=== PATIENT | female | born 1945 | race Caucasian/White ===

== ENCOUNTER 2021-11-28 12:39 | Emergency (ER) | payer MEDICARE, OTHER ==
[~2021-11-28] VITALS: Ht 182.9 cm; Wt 195.0 kg
[2021-11-28 14:54] VITALS: BP 162/43
[2021-11-28 15:13] LABS: BASO % 0 % (0-3); EOS % 0 % (0-3); HEMATOCRIT 47.5 % (36.0-47.0); HEMOGLOBIN 15.9 g/dL (12.0-15.5); LYMPH # 1.1 x10^3/uL (1.0-4.8); LYMPH % 22 % (24-48); MEAN CORPUSCULAR HEMOGLOBIN 30 pg (25-35); MEAN CORPUSCULAR HGB CONC 33 g/dL (31-37); MEAN CORPUSCULAR VOLUME 91 fL (79-100); MONO # 0.4 x10^3/uL (0.0-1.1); MONO % 9 % (0-9); NEUT # 3.2 x10^3/uL (1.8-7.7); NEUT % 68 % (31-73); PLATELET COUNT 108 x10^3/uL (140-400); RED BLOOD COUNT 5.23 x10^6/uL (3.50-5.40); RED CELL DISTRIBUTION WIDTH 13.4 % (11.5-14.5); WHITE BLOOD COUNT 4.7 x10^3/uL (4.0-11.0)
[2021-11-28 15:23] LABS: CALCIUM 8.4 mg/dL (8.5-10.1); CREATININE 1.4 mg/dL (0.6-1.0); GFR 36.7; POTASSIUM 4.1 mmol/L (3.5-5.1)
[2021-11-28] MEDS: ONDANSETRON PF 4 MG/2 ML VIAL. IVP ONE (15:24)
[2021-11-28] MEDS: IV NORMAL SALINE 1000ML BAG 1,000 ML IV ONE (15:25)
--- NOTE | 2021-11-28 15:26 | PHYS DOC ---
Past Medical History Additional Past Medical Histor: melanoma Past Surgical History: Other Additional Past Surgical Histo: cataract removal both eyes, melanoma, facial lesion Smoking Status: Never Smoker Alcohol Use: None General Adult EDM: Chief Complaint: NAUSEA/VOMITING/DIARRHEA HPI: HPI: Patient is a 76 year old female who presents the ED today to be evaluated for multiple complaints. Daughter states patient had cough congestion and a fever on Sunday. On Sunday she developed nausea, vomiting and generalized weakness. Patient denies any abdominal pain, chest pain, or shortness of breath. She states she received a Pfizer Covid vaccine last year one dose and developed an allergic reaction which she describes as pain to the upper extremities, headache. She states she will not get any more Covid vaccines. She states she received a flu vaccine last week Most history was obtained from the does not Review of Systems: Review of Systems: Constitutional: Reports fever, weakness Eyes: Denies change in visual acuity. [] HENT: Reports nasal congestion Respiratory: Reports cough, denies shortness of breath Cardiovascular: Denies chest pain or edema. [] GI: Reports nausea and vomiting. Denies abdominal pain, bloody stools or diarrhea. [] : Denies dysuria. [] Musculoskeletal: Denies back pain or joint pain. [] Integument: Denies rash. [] Neurologic: Denies headache, focal weakness or sensory changes. [] Psychiatric: Denies depression or anxiety. [] Heart Score: C/O Chest Pain: N/A Risk Factors: Risk Factors: DM, Current or recent (<one month) smoker, HTN, HLP, family history of CAD, obesity. Risk Scores: Score 0 - 3: 2.5% MACE over next 6 weeks - Discharge Home Score 4 - 6: 20.3% MACE over next 6 weeks - Admit for Clinical Observation Score 7 - 10: 72.7% MACE over next 6 weeks - Early Invasive Strategies Current Medications: Current Medications Medications (Trade) Dose Ordered Sig/Marco Start Time Stop Time Status Last Admin Dose Admin Ondansetron HCl (Zofran) 4 mg 1X ONCE 11/28/21 15:00 11/28/21 15:04 DC Sodium Chloride 1,000 ml @ 1,000 mls/hr 1X ONCE 11/28/21 15:00 11/28/21 15:59 Allergies: Allergies: Allergies Coded Allergies Type Severity Reaction Last Updated Verified Penicillins Allergy Intermediate 11/28/21 Yes Sulfa (Sulfonamide Antibiotics) Allergy Intermediate 11/28/21 Yes Physical Exam: PE: Constitutional: Well developed, well nourished, no acute distress, non-toxic appearance. [] HENT: Normocephalic, atraumatic, bilateral external ears normal, oropharynx moist, no oral exudates, nose normal. [] Eyes: PERRLA, EOMI, conjunctiva normal, no discharge. [] Neck: Normal range of motion, no tenderness, supple, no stridor. [] Cardiovascular:Heart rate regular rhythm, no murmur [] Lungs & Thorax: Bilateral breath sounds clear to auscultation [] Abdomen: Bowel sounds normal, soft, no tenderness, no masses, no pulsatile masses. [] Skin: Warm, dry, no erythema, no rash. [] Back: No tenderness, no CVA tenderness. [] Extremities: No tenderness, no cyanosis, no clubbing, ROM intact, no edema. [] Neurologic: Alert and oriented X 3, normal motor function, normal sensory function, no focal deficits noted. [] Psychologic: Affect normal, judgement normal, mood normal. [] Current Patient Data: Labs: Laboratory Tests Test 11/28/21 15:00 White Blood Count 4.7 x10^3/uL (4.0-11.0) Red Blood Count 5.23 x10^6/uL (3.50-5.40) Hemoglobin 15.9 g/dL (12.0-15.5) H Hematocrit 47.5 % (36.0-47.0) H Mean Corpuscular Volume 91 fL (79-100) Mean Corpuscular Hemoglobin 30 pg (25-35) Mean Corpuscular Hemoglobin Concent 33 g/dL (31-37) Red Cell Distribution Width 13.4 % (11.5-14.5) Platelet Count 108 x10^3/uL (140-400) L Neutrophils (%) (Auto) 68 % (31-73) Lymphocytes (%) (Auto) 22 % (24-48) L Monocytes (%) (Auto) 9 % (0-9) Eosinophils (%) (Auto) 0 % (0-3) Basophils (%) (Auto) 0 % (0-3) Neutrophils # (Auto) 3.2 x10^3/uL (1.8-7.7) Lymphocytes # (Auto) 1.1 x10^3/uL (1.0-4.8) Monocytes # (Auto) 0.4 x10^3/uL (0.0-1.1) Eosinophils # (Auto) 0.0 x10^3/uL (0.0-0.7) Basophils # (Auto) 0.0 x10^3/uL (0.0-0.2) Laboratory Tests 11/28/21 15:00 Vital Signs: Vital Signs Date Time Temp Pulse Resp B/P (MAP) Pulse Ox O2 Delivery O2 Flow Rate FiO2 11/28/21 14:54 98 18 162/43 (82) 99 11/28/21 13:04 97.8 Room Air 97.8 EKG: EK interpreted by Dr. Carballo sinus rhythm heart rate 96 no STEMI [] Radiology/Procedures: Radiology/Procedures: []PROCEDURE: PORTABLE CHEST 1V XR CHEST 1V History: Reason: fever / Spl. Instructions: / History: Comparison: None. Findings: Mild ill-defined mid and bibasilar opacities. No pleural effusion. No p neumothorax. Normal heart size. Impression: 1. Mild ill-defined mid and bibasilar opacities, may represent pneumonia including viral pneumonia. Electronically signed by: Omid Disla DO (11/28/2021 3:45 PM) [facility] DICTATED and SIGNED BY: OMID DISLA DO DATE: 11/28/21 [id number] 0 Course & Med Decision Making: Course & Med Decision Making Pertinent Labs and Imaging studies reviewed. (See chart for details) This is a 76-year-old female patient presenting to the ED today complaining of cough, nasal congestion, fevers that began on Sunday, also complaining of nausea, vomiting and weakness since Sunday last week. CBC with a normal WBC, CMP with nothing limits acute. Positive for COVID-19, chest x-ray noted for possible viral pneumonia. Spoke to patient and daughter benefits of admission versus being discharged. Patient prefers to go home. She will stay with the daughter for now. Discharged on doxycycline, Decadron and Zofran. Follow-up with PCP in 1 week Franklyn Disclaimer: Franklyn Disclaimer: This electronic medical record was generated, in whole or in part, using a voice recognition dictation system. Departure Departure Impression: Primary Impression: COVID-19 virus RNA test result positive at limit of detection Additional Impressions: Bilateral pneumonia Qualified Codes: J18.9 - Pneumonia, unspecified organism Fever Qualified Codes: R50.9 - Fever, unspecified URI (upper respiratory infection) Qualified Codes: J06.9 - Acute upper respiratory infection, unspecified Nausea & vomiting Qualified Codes: R11.2 - Nausea with vomiting, unspecified Disposition: 01 HOME / SELF CARE / HOMELESS Condition: STABLE Referrals: KARLA KINSEY MD (PCP) follow up in the next 7 days Patient Instructions: Fever, Adult, Nausea and Vomiting, Pneumonia, Adult Additional Instructions: You are positive for COVID-19. We will put you on antibiotics, ensure you complete them. We also put you on steroids. Take them until completed. Take Zofran as needed for nausea or vomiting, you can also take the prescribed promethazine for nausea or vomiting. Push fluids, maintain good and hygiene, rest, come back to the ED at any point symptoms worsen. Follow-up with your doc tor next week. Use the incentive spirometry provided at least 10 times every hour. Scripts Dexamethasone (Decadron) 4 Mg Tablet 1 TAB PO BID for 4 Days, #8 TAB 0 Refills Prov: TONI SILVA REGISTERED APPRAISER 11/28/21 Promethazine Hcl (PROMETHAZINE HCL) 25 Mg Tablet 1 TAB PO PRN Q6HRS, #20 TAB Prov: TONI SILVA REGISTERED APPRAISER 11/28/21 Ondansetron (ONDANSETRON ODT) 4 Mg Tab.rapdis 1 TAB PO PRN Q6-8HRS, #16 TAB Prov: TONI SILVA REGISTERED APPRAISER 11/28/21 Doxycycline Hyclate (DOXYCYCLINE HYCLATE) 100 Mg Tablet 1 TAB PO BID, #14 TAB Prov: TONI SILVA REGISTERED APPRAISER 11/28/21 TONI SILVA REGISTERED APPRAISER Nov 28, 2021 15:26
[2021-11-28 15:37] LABS: ALBUMIN 3.4 g/dL (3.4-5.0); ALBUMIN/GLOBULIN RATIO 0.8 (1.0-1.7); MAGNESIUM 2.1 mg/dL (1.8-2.4); TOTAL BILIRUBIN 0.8 mg/dL (0.2-1.0); TOTAL PROTEIN 7.7 g/dL (6.4-8.2)
[2021-11-28] MEDS: MORPHINE SULFATE 2 MG/ML INJ. IVP ONE (15:45)
--- NOTE | 2021-11-28 15:47 | RAD ---
XR CHEST 1V History: Reason: fever / Spl. Instructions: / History: Comparison: None. Findings: Mild ill-defined mid and bibasilar opacities. No pleural effusion. No pneumothorax. Normal heart size . Impression: 1. Mild ill-defined mid and bibasilar opacities, may represent pneumonia including viral pneumonia. Electronically signed by: Omid Disla DO (11/28/2021 3:45 PM) [facility] [place]
[2021-11-28] MEDS: ACETAMINOPHEN 500 MG TABLET PO ONE (15:51)
[2021-11-28 16:11] LABS: INFLUENZA A PATIENT NEGATIVE (NEGATIVE); INFLUENZA B PATIENT NEGATIVE (NEGATIVE)
[2021-11-28] MEDS: cefTRIAXone IV Push 1 GM VIAL. IVP ONE (17:13)
[2021-11-28] MEDS: DEXAMETHASONE SOD PHOS 20 MG/5 ML VIAL. IV ONE (17:13)
[2021-11-28] MEDS ORDERED: ONDA4TAB12 PO (17:20)
[2021-11-28] MEDS ORDERED: PROM25TA10 PO (17:20)
[2021-11-28] MEDS ORDERED: DOXY100T PO (17:20)
[2021-11-28] MEDS ORDERED: DEXA4TAB63 PO (17:48)
[2021-11-28 17:58] LABS: BILIRUBIN,URINE NEGATIVE (NEG); COLOR,URINE YELLOW; NITRITE,URINE NEGATIVE (NEG); PROTEIN,URINE NEGATIVE (NEG-TRACE); UROBILINOGEN,URINE 0.2 mg/dL (0.2 mg/dL)
[2021-11-28 18:08] LABS: BACTERIA,URINE FEW /HPF (0-FEW); CLARITY,URINE HAZY; RBC,URINE 0 /HPF (0-2)
[2021-11-28 18:09] LABS: WBC,URINE OCC /HPF (0-4)
[2021-11-28 18:22] LABS: BARBITURATES NEG (NEG); BENZODIAZEPINES NEG (NEG); CANNABINOIDS NEG (NEG); COCAINE NEG (NEG); METHADONE NEG (NEG); OPIATES NEG (NEG); PHENCYCLIDINE NEG (NEG)
[2021-11-28 18:28] LABS: AMPHETAMINE/METHAMPHETAMINE NEG (NEG)
--- NOTE | 2021-11-28 18:52 | EKG ---
[facility] [address] [place] [id number] Test Date: 2021-11-28 Test Time: 15:14:51 Pat Name: MYRNA SEGUNDO Department: Room: Gender: F Skin Washer: : 1945 Requested By: TONI SILVA Order Number: [id number] Reading MD: Golden Novoa Measurements Intervals [place] Rate: 96 P: 2 IN: 156 QRS: -19 QRSD: 68 T: -26 QT: 362 QTc: 458 Interpretive Statements SINUS RHYTHM LEFTWARD AXIS T ABNORMALITY IN ANTEROSEPTAL LEADS ABNORMAL ECG RI6.02 No previous ECG available for comparison Electronically Signed On 12-01-2021 15:18:04 PARARESCUE MANAGER by Golden Novoa
== END 2021-11-28 17:52 | disposition home or self-care (01) ==
LOC: ER 12:39
DX: U07.1 COVID-19 (principal); J18.9 Pneumonia, unspecified organism; J06.9 Acute upper respiratory infection, unspecified; R11.2 Nausea with vomiting, unspecified
CPT/HCPCS: 36415; 71045; 80053; 80307; 81001; 83605; 83735; 83880; 84145; 84443; 84484; 85025; 87040; 87205; 87426; 87804; 93005; 96361; 96374; 96375; 99285; J0696; J1100; J2405; J7030